=== PATIENT | female | born 1960 | race Caucasian/White ===

== ENCOUNTER 2018-06-08 14:58 | Outpatient (CLI) ==
[2016-05-06 15:15] VITALS: BMI 28.9
--- NOTE | 2018-06-08 15:39 | DI ---
EXAM: Right knee four view . HISTORY: Right knee effusion COMPARISON: None available at the time of dictation. FINDINGS: No definitive right knee acute fracture or dislocation is identified. Joint spaces appear preserved. No definitive soft tissue radiodense foreign bodies are identified. There is a small right knee supr apatellar density which may represent a small right knee suprapatellar effusion. IMPRESSION: No right knee acute fracture or dislocation identified. There is a small right knee suprapatellar density which may represent a small right knee suprapatella r effusion.
--- NOTE | 2018-06-08 15:51 | DI ---
EXAM: Right hand three-view HISTORY: Pain in right hand COMPARISON: None FINDINGS: No fracture or dislocation. Mild scattered osteoarthritic change throughout the hand. Re modeling change in the third and possibly fourth metacarpal may be due to old healed fractures. No e rosive changes identified. No focal soft tissue abnormality. IMPERSSION: Mild osteoarthritis.
== END 2018-06-08 14:59 | disposition home or self-care (01) ==
LOC: RAD 14:58
PROVIDERS: ATTEND Emergency Medicine
DX: E78.5 Hyperlipidemia, unspecified (principal); K70.30 Alcoholic cirrhosis of liver without ascites; F10.20 Alcohol dependence, uncomplicated; M79.641 Pain in right hand; M25.461 Effusion, right knee; E66.9 Obesity, unspecified
CPT/HCPCS: 36415; 80053; 80061; 82140; 84443; 85025; 85610

== ENCOUNTER 2019-02-07 10:23 | Outpatient (CLI) | payer MEDICAID, OTHER ==
[2016-05-06 15:15] VITALS: BMI 28.9
--- NOTE | 2019-02-07 11:31 | US ---
EXAM: Right upper quadrant abdominal ultrasound. History: Cirrhosis, thrombocytopenia. Comparison: CT abdomen pelvis 05/06/2016 Technique: Multiple sonographic images through the abdomen were obtained. Color duplex Doppler was used to interrogate vascular flow. Findings: Nodular cirrhotic liver. No focal liver lesions identified sonographically. There is antegrade flow within the main portal vein. The visualized pancreas demonstrates no gross abnormality. Limited vi sualization of the right kidney demonstrates no evidence for hydronephrosis. Gallbladder is distende d. No shadowing gallstones. Gallbladder wall is not thickened. Common bile duct measures 0.3 cm in caliber. Impression: 1. Cirrhotic liver. 2. Distended gallbladder but no shadowing gallstones.
== END 2019-02-07 10:24 | disposition home or self-care (01) ==
LOC: RAD 10:23
PROVIDERS: ATTEND Nurse Practitioner Family
DX: D64.9 Anemia, unspecified (principal); R74.8 Abnormal levels of other serum enzymes; R53.83 Other fatigue; Z87.898 Personal history of other specified conditions; K74.60 Unspecified cirrhosis of liver; D69.6 Thrombocytopenia, unspecified
CPT/HCPCS: 36415; 80053; 80061; 80074; 82607; 83036; 84436; 84443; 84479; 85025

== ENCOUNTER 2019-03-11 15:07 | Outpatient (CLI) ==
[2016-05-06 15:15] VITALS: BMI 28.9
--- NOTE | 2019-03-14 09:02 | MAMMO ---
EXAM: Digital screening mammogram with tomosynthesis HISTORY: Screening COMPARISON: 05/27/2016 FINDINGS: Digital MLO and CC views of the right and left breast were performed. Tomosynthesis was performed. Computer aided detection utilized. There are scattered fibroglandular densities. There is no evidence for mass, asymmetry, distortion, or suspicious calcifications in either breast. IMPRESSION: 1. No evidence of malignancy in the right or left breast. 2. Annual screening mammogram is recommended in one year. BIRADS category 1, negative examination
== END 2019-03-11 15:08 | disposition home or self-care (01) ==
LOC: RAD 15:07
PROVIDERS: ATTEND Nurse Practitioner Family
DX: Z12.31 Encounter for screening mammogram for malignant neoplasm of breast (principal)

== ENCOUNTER 2019-04-18 13:38 | Emergency (ER) ==
[2019-04-18 13:46] VITALS: BMI 32.9
[2019-04-18] MEDS ORDERED: SODIUM CHLORIDE 1,000 ML IV STA ×2 (14:23→15:49)
[2019-04-18] MEDS ORDERED: ROCEPHIN 2 GM in SODIUM CHLORIDE 100 ML IV STA (14:23)
[2019-04-18] MEDS ORDERED: ROCEPHIN ONE (14:36)
[2019-04-18] MEDS ORDERED: SODIUM CHLORIDE 3% 500 ML IV SCH (15:30)
[2019-04-18] MEDS ORDERED: POTASSIUM CHLORIDE PREMIX RUN 10 MEQ in PREMIX 100 ML WATER 1 BAG IV STA (15:48)
[2019-04-18] MEDS ORDERED: VANCOMYCIN 1 GM in SODIUM CHLORIDE 250 ML IV STA (15:51)
[2019-04-18] MEDS ORDERED: POTASSIUM CHLORIDE PREMIX RUN 100 ML IV ONE (16:03)
--- NOTE | 2019-04-18 16:34 | CT ---
EXAM: CT of the head without contrast History: Head trauma. Comparison: Head CT 09/21/2015 Technique: Multiplanar CT images through the head were obtained without the administration of IV con trast Findings: Mucosal thickening and fluid seen within the bilateral maxillary sinuses and ethmoid sinus es. Mastoid air cells are clear in general. No acute calvarial abnormalities. Intracranially the ventricular and cisternal spaces are normal in size, shape and configuration for a patient of this age. No dominant mass or midline shift. No hydrocephalous. No acute intracranial hemorrhage or abnormal extraaxial fluid collections. Impression: 1. No acute intracranial process. 2. Paranasal sinus disease
--- NOTE | 2019-04-18 16:37 | CT ---
EXAM: CT chest without contrast HISTORY: Cough, fever, weakness COMPARISON: None TECHNIQUE: CT chest performed without intravenous contrast. Coronal and sagittal reformatted images obtained. FINDINGS: The thyroid and thoracic inlet appear normal. Heart normal in size. Coronary calcificati ons. No pericardial effusion. Aorta normal in caliber. Mild to moderate atherosclerosis. Esophagu s unremarkable. Evaluation for lymphadenopathy limited without contrast. No lymphadenopathy identif ied. Calcified lymph nodes, consistent with old granulomatous disease. No acute abnormalities of th e bones. Mild degenerative change in the spine. Central airway patent. Mild dependent atelectasis. No airspace consolidation. No pleural effusion. No pneumothorax. 3 mm nodule left lung image 32 i s unchanged from 05/06/2016, most consistent with benign etiology. Please refer to separate report C T abdomen pelvis regarding findings in the upper abdomen. IMPRESSION: 1. Mild bibasilar atelectasis. No airspace consolidation. 2. Coronary calcifications. Atherosclerosis. 3. Findings of old granulomatous disease.
--- NOTE | 2019-04-18 16:38 | DI ---
EXAM: Left elbow three-view HISTORY: Fall COMPARISON: All none FINDINGS: The patient has an IV line. The bones are normal. The alignment is normal. No joint effus ion. No focal soft tissue abnormality. IMPRESSION: Normal examination.
--- NOTE | 2019-04-18 16:38 | CT ---
EXAM: CT of the abdomen pelvis without contrast History: Abdominal pain and lethargic Comparison: Chest CT 04/18/2019, CT abdomen pelvis 05/06 2016 Technique: Multiplanar CT images through the abdomen pelvis were obtained without the administration of IV contrast Findings: Subsegmental atelectasis seen within the lower lungs. No acute osseous abnormalities. Nodular cirrhotic liver with increased size of collateral vessels and recanalization of the periumbil ical vein. No discrete gallstones identified by CT. Evaluation for liver lesions is limited due to the lack of contrast administration. Spleen is not enlarged. No renal stones and no hydronephrosis. Mild peripancreatic edema. Adrenal glands are unremarkable. No bowel obstruction. No bladder wal l thickening. No free air. No ascites. No perirectal inflammation. Possible endometrial thickenin g. No abdominal aortic aneurysm. Mildly enlarged upper lung nodes are probably reactive. Impression: 1. Possible mild pancreatitis. Correlate with pancreatic enzymes. 2. Worsening cirrhosis and increased size of the abdominal collateral vessels consistent with portal venous hypertension. 3. Possible endometrial thickening. Recommend further evaluation with nonemergent pelvic ultrasound .
--- NOTE | 2019-04-18 16:40 | DI ---
EXAM: Left humerus two-view HISTORY: Fall COMPARISON: None FINDINGS: The bones are normal. Alignment is normal. No focal soft tissue abnormality. Patient has a n IV line IMPERSSION: Normal examination.
--- NOTE | 2019-04-18 17:01 | ED.PDOC ---
General ED Provider: Dr. ROC RICO Chief Complaint: Weakness Stated Complaint: weakness frequent falls. 59 years white female c/o progressive weakness over the last 2 weeks with multiple episodes of diarrhea and later loose stools. Time Seen by Physician: 13:39 Mode of Arrival: Wheelchair Information Source: Patient Exam Limitations: No limitations Primary Care Provider: MICHAEL GARCIA Nursing and Triage Documentation Reviewed and Agree: Yes Does patient meet sepsis criteria?: Yes If yes, has appropriate treatment been initiated?: Yes System Inflammatory Response Syndrome: Temp 101F or Greater Sepsis Protocol: For patient's 13 years and over: Temp is 96.8 and below OR 101 and greater Pulse >90 BPM Resp >20/minute Acutely Altered Mental Status Are patient's symptoms suggestive of a new infection, such as: -Pneumonia -Skin, Soft Tissue -Endocarditis -UTI -Bone, Joint Infection -Implantable Device -Acute Abdominal Infection -Wound Infection -Meningitis -Blood Stream Catheter Infection -Unknown Miscellaneous Complaint Exam - Complex/Multi-System Complaint/Exam Onset/Duration: 1 week Symptoms Are: Resolved Episodes Lasting: Days Initial Severity: Moderate Current Severity: Moderate Associated Signs and Symptoms: Reports: Weakness, Cough, Nausea, Abdominal pain , Decreased oral intake Recent Echo/LV Function: No Respiratory Distress: None JVD Present: No Tachypnea Present: No Stridor Present: No Abdominal Findings: Present: Normal findings Glascow Coma Scale (see protocol): 15 Meningeal Signs Positive: No Focal Weakness: Present: None Focal Sensory Loss: Present: None Gait: Unable Babinski Sign: Negative Right, Negative Left Joint Swelling Present: No In-Dwelling Device Present: No Differential Diagnosis: Cardiac Ischemia, Metabolic Abnormality, Sepsis, UTI Quality Indicators for Cardiac Chest Pain: EKG in 10min. Quality Indicators for AMI: EKG in 10min. Quality Indicators For Pneumonia/CAP: Antibiotics in 6hr-admit, Empiric Antibiotic Rx, Vital signs, Mental status assessed (aox3 ) Quality Indicator For Non-Traumatic Chest Pain/Syncope: EKG Performed Review of Systems - Review Of Systems Constitutional: Reports: Malaise, Weakness, Loss of appetite Eyes: Reports: No symptoms Ears, Nose, Mouth, Throat: Reports: No symptoms Respiratory: Reports: Cough Cardiac: Reports: No symptoms GI: Reports: No symptoms : Reports: No symptoms Musculoskeletal: Reports: No symptoms Skin: Reports: No symptoms Neurological: Reports: No symptoms Endocrine: Reports: No symptoms Hematologic/Lymphatic: Reports: No symptoms All Other Systems: Reviewed and Negative Past Medical History - Past Medical History Endocrine: Reports: Dyslipidemia (old record) Cardiovascular: Reports: None Respiratory: Reports: None Hematological: Reports: Anemia (old record) Gastrointestinal: Reports: Liver (old record) Genitourinary: Reports: None Neuro/Psych: Reports: Other (knee buckling) Musculoskeletal: Reports: None Cancer: Reports: None Last Menstrual Period: na - Surgical History General Surgical History: Reports: Tubal ligation, Other (plastic surgery right face right hand, colonoscopy) - Family History Family History: Reports: Unknown - Social History Smoking Status: Current some day smoker Hx Substance Use: No Alcohol Screening: Occasionally - Immunizations Tetanus Shot up to Date: Yes Physical Exam - Physical Exam Appearance: Ill-appearing Ill-appearing: Severe Pain Distress: Mild Eyes: ADRIENNE, EOMI, Conjunctiva clear ENT: Erythema, Dry mucosa Respiratory: Airway patent Cardiovascular: RRR, Pulses normal, No rub, No murmur GI/: Soft, Nontender, No masses, Bowel sounds normal, No Organomegaly Musculoskeletal: Normal strength, ROM intact, No edema, No calf tenderness Skin: Warm, Dry, Normal color Neurological: Sensation intact, Motor intact, Reflexes intact, Cranial nerves intact, Alert, Oriented Psychiatric: Affect appropriate, Mood appropriate Interpretation - Radiology Interpretation Radiology Interpretation By: Radiologist Radiology Results: Positive (cirrhosis) - Publications Editor Rate: Normal Rhythm: Sinus - EKG Interpretation Rate: Normal Rhythm: Sinus Physician Notification - Case Discussed Physician Notified: alba ESPINO Time of Notification: 17:20 (TRANSFER ) Critical Care Note - Critical Care Note Total Time (mins): 120 Course - Course Hematology/Chemistry: 04/18/19 14:30 04/18/19 14:30 Orders, Labs, Meds: Lab Review 04/18/19 04/18/19 04/18/19 14:30 14:30 14:30 WBC 4.25 L RBC 4.06 L Hgb 12.5 Hct 35.6 L MCV 87.7 MCH 30.8 MCHC 35.1 RDW Coeff of Rhiannon 22.7 H Plt Count 30 L Immature Gran % (Auto) 0.7 Neut % (Auto) 61.4 Lymph % (Auto) 12.9 [place] % (Auto) 24.5 H Eos % (Auto) 0.0 Baso % (Auto) 0.5 Immature Gran # (Auto) 0.0 Neut # (Auto) 2.6 Lymph # (Auto) 0.6 [place] # (Auto) 1.0 Eos # (Auto) 0.0 Baso # (Auto) 0.0 Anisocytosis 1+ PT 16.1 H INR 1.63 APTT 35.2 Puncture Site O2 Saturation ABG pH ABG pCO2 ABG pO2 ABG HCO3 ABG Total CO2 ABG Base Excess William Test FiO2 % Sodium 118.2 L* Potassium 2.87 L Chloride 85.4 L Carbon Dioxide 18.1 L Anion Gap 17.57 BUN 4.1 L Creatinine 0.41 L Estimated GFR (MDRD) 159.00 BUN/Creatinine Ratio 10.00 Glucose 115.9 H Lactic Acid Calcium 8.31 L Total Bilirubin 1.69 H AST 333.3 H ALT 57.1 H Alkaline Phosphatase 69.5 Total Creatine Kinase 8332.9 H CK-MB (CK-2) 3.880 H CK-MB (CK-2) % 0.0400 Troponin I 0.271 H Total Protein 7.34 Albumin 3.66 Globulin 3.68 Albumin/Globulin Ratio 0.99 Procalcitonin Urine Color Urine Clarity Urine pH Ur Specific [place] Urine Protein Urine Glucose (UA) Urine Ketones Urine Blood Urine Nitrite Urine Bilirubin Urine Urobilinogen Ur Leukocyte Esterase Urine Microscopic RBC Urine Microscopic WBC Ur Squamous Epith Cells Influ A Molecular Assay Influ B Molecular Assay 04/18/19 04/18/19 04/18/19 14:30 14:30 14:30 WBC RBC Hgb Hct MCV MCH MCHC RDW Coeff of Rhiannon Plt Count Immature Gran % (Auto) Neut % (Auto) Lymph % (Auto) [place] % (Auto) Eos % (Auto) Baso % (Auto) Immature Gran # (Auto) Neut # (Auto) Lymph # (Auto) [place] # (Auto) Eos # (Auto) Baso # (Auto) Anisocytosis PT INR APTT Puncture Site O2 Saturation ABG pH ABG pCO2 ABG pO2 ABG HCO3 ABG Total CO2 ABG Base Excess William Test FiO2 % Sodium Potassium Chloride Carbon Dioxide Anion Gap BUN Creatinine Estimated GFR (MDRD) BUN/Creatinine Ratio Glucose Lactic Acid 2.85 H Calcium Total Bilirubin AST ALT Alkaline Phosphatase Total Creatine Kinase CK-MB (CK-2) CK-MB (CK-2) % Troponin I Total Protein Albumin Globulin Albumin/Globulin Ratio Procalcitonin 0.76 Urine Color Yellow Urine Clarity Clear Urine pH 6.5 Ur Specific [place] 1.020 Urine Protein 2+ Urine Glucose (UA) Negative Urine Ketones 2+ Urine Blood 3+ Urine Nitrite Negative Urine Bilirubin 1+ Urine Urobilinogen 2.0 Ur Leukocyte Esterase Negative Urine Microscopic RBC 20-30 Urine Microscopic WBC 0-2 Ur Squamous Epith Cells 2-5 Influ A Molecular Assay Influ B Molecular Assay 04/18/19 04/18/19 14:30 14:45 WBC RBC Hgb Hct MCV MCH MCHC RDW Coeff of Rhiannon Plt Count Immature Gran % (Auto) Neut % (Auto) Lymph % (Auto) [place] % (Auto) Eos % (Auto) Baso % (Auto) Immature Gran # (Auto) Neut # (Auto) Lymph # (Auto) [place] # (Auto) Eos # (Auto) Baso # (Auto) Anisocytosis PT INR APTT Puncture Site R rad O2 Saturation 96.0 ABG pH 7.520 H* ABG pCO2 20.5 L ABG pO2 73.0 L ABG HCO3 16.8 L ABG Total CO2 17 L ABG Base Excess -6 L William Test + FiO2 % 21.0 Sodium Potassium Chloride Carbon Dioxide Anion Gap BUN Creatinine Estimated GFR (MDRD) BUN/Creatinine Ratio Glucose Lactic Acid Calcium Total Bilirubin AST ALT Alkaline Phosphatase Total Creatine Kinase CK-MB (CK-2) CK-MB (CK-2) % Troponin I Total Protein Albumin Globulin Albumin/Globulin Ratio Procalcitonin Urine Color Urine Clarity Urine pH Ur Specific [place] Urine Protein Urine Glucose (UA) Urine Ketones Urine Blood Urine Nitrite Urine Bilirubin Urine Urobilinogen Ur Leukocyte Esterase Urine Microscopic RBC Urine Microscopic WBC Ur Squamous Epith Cells Influ A Molecular Assay Negative by naat Influ B Molecular Assay Negative by naat Orders Category Date Time Status ABG DRAW REQUEST Stat CARDIO 04/18/19 14:22 Completed EKG-(ED ONLY) Stat CARDIO 04/18/19 14:20 Completed ED IV/MEDIPORT/POWERPORT .ONCE EMERGENCY 04/18/19 14:20 Active ABG Stat LAB 04/18/19 14:45 Completed BLOOD CULTURE (ED ONLY) Stat LAB 04/18/19 14:30 Received BMP [BASIC METABOLIC PANEL] Stat LAB 04/18/19 16:49 Ordered CBC W/ AUTO DIFF Stat LAB 04/18/19 14:30 Completed COMPREHENSIVE METABOLIC PANEL Stat LAB 04/18/19 14:30 Completed CREATINE KINASE Stat LAB 04/18/19 14:30 Completed ETOH LEVEL [BLOOD ALCOHOL] Stat LAB 04/18/19 16:57 Ordered FLU A/B MOLECULAR Stat LAB 04/18/19 14:30 Completed LACTIC ACID Stat LAB 04/18/19 14:30 Completed MOLECULAR GROUP A STREP Stat LAB 04/18/19 14:30 Completed PARTIAL THROMBOPLASTIN TIME Stat LAB 04/18/19 14:30 Completed PROCALCITONIN Stat LAB 04/18/19 14:30 Completed PT WITH INR Stat LAB 04/18/19 14:30 Completed RBC MORPHOLOGY Stat LAB 04/18/19 14:30 Completed TROPONIN I Stat LAB 04/18/19 14:30 Completed URINALYSIS C & S IF INDICATED Stat LAB 04/18/19 14:30 Completed 0.9 % Sodium Chloride [Saline Flush] MEDS 04/18/19 14:20 Active 1 syr IVF PRN PRN Ceftriaxone Sodium [Rocephin] MEDS 04/18/19 14:36 Discontinued 2 gm .ROUTE .STK-MED ONE Ceftriaxone Sodium [Rocephin] 2 gm MEDS 04/18/19 14:23 Discontinued 0.9 % Sodium Chloride [Sodium Chloride] 100 ml IV ONCE Potassium Chloride [Potassium Chloride Premix Run] 10 MEDS 04/18/19 15:48 Discontinued meq Premix 100 ml Water 1 bag IV ONCE Potassium Chloride [Potassium Chloride Premix Run] 100 MEDS 04/18/19 16:03 Discontinued ml IV .STK-MED Sodium Chloride 0.9% [Sodium Chloride] 1,000 ml MEDS 04/18/19 15:49 Active IV 125 mls/hr Sodium Chloride 0.9% [Sodium Chloride] 1,000 ml MEDS 04/18/19 14:23 Discontinued IV BOLUS Sodium Chloride 3% 500 ml MEDS 04/18/19 15:30 Active IV 100 mls/hr Vancomycin HCl [Vancomycin] 1 gm MEDS 04/18/19 15:51 Active 0.9 % Sodium Chloride [Sodium Chloride] [address] ABDOMEN/PELVIS WO CONTRAST Stat RADS 04/18/19 14:[address] CHEST W/O CONTRAST Stat RADS 04/18/19 14:[address] HEAD W/O CONTRAST Stat RADS 04/18/19 15:51 Completed ELBOW, LEFT MIN 3 VIEWS Stat RADS 04/18/19 14:24 Completed HUMERUS, LEFT 2VIEWS Stat RADS 04/18/19 14:24 Completed Medications Generic Name Dose Route Start Last Admin Trade Name Freq PRN Reason Stop Dose Admin Sodium Chloride 500 mls @ 100 mls/hr 04/18/19 15:30 04/18/19 15:35 Sodium Chloride 3% IV 100 mls/hr .Q5H QUANG Administration Sodium Chloride 1,000 mls @ 125 mls/hr 04/18/19 15:49 Sodium Chloride IV 04/18/19 23:48 .Q8H STA Sodium Chloride 1 syr 04/18/19 14:20 04/18/19 14:46 Saline Flush IVF 1 syr PRN PRN Administration To flush IV Discontinued Medications Generic Name Dose Route Start Last Admin Trade Name Freq PRN Reason Stop Dose Admin Sodium Chloride 1,000 mls @ 1,000 mls/hr 04/18/19 14:23 04/18/19 14:46 Sodium Chloride IV 04/18/19 15:22 1,000 mls/hr BOLUS STA Administration Ceftriaxone Sodium 2 gm/ 100 mls @ 100 mls/hr 04/18/19 14:23 04/18/19 14:46 Sodium Chloride IV 04/18/19 15:22 100 mls/hr ONCE STA Administration Potassium Chloride 10 meq/ 100 mls @ 100 mls/hr 04/18/19 15:48 04/18/19 16:30 Sterile Water IV 04/18/19 16:47 100 mls/hr ONCE STA Administration Vancomycin HCl 1 gm/ Sodium 250 mls @ 250 mls/hr 04/18/19 15:51 04/18/19 16: 32 Chloride IV 04/18/19 16:50 250 mls/hr ONCE STA Administration Vital Signs: Temp Pulse Resp BP Pulse Ox 04/18/19 15:04 102.7 F H 04/18/19 13:38 103.8 F H 106 H 18 123/77 92 L Departure - Departure Time of Disposition: 17:20 (NEURONONEFOCAL AT 17:20) Disposition: TSF SHORT-TRM HOSP Discharge Problem: Pancytopenia, Hypokalemia, Hyponatremia Instructions: Hyponatremia (ED) Condition: Good Pt referred to PMD for follow-up: Yes IPMP verified?: No Additional Instructions: Please call your Family Physician as soon as possible to schedule a follow-up appointment. Allergies/Adverse Reactions: Allergies Penicillins Allergy (Intermediate, Verified 04/18/19 14:03) Itching Home Medications: Ambulatory Orders 1 [No Reported Medications] 09/21/15
[2019-04-18 17:34] VITALS: BP 136/68; TEMP 101.5
== END 2019-04-18 18:00 | disposition short-term general hospital (02) ==
LOC: ED 13:38
DX: R53.1 Weakness (principal); R05 Cough; R11.0 Nausea; R10.9 Unspecified abdominal pain; R63.0 Anorexia; R53.81 Other malaise; Z72.0 Tobacco use; D61.818 Other pancytopenia; E87.6 Hypokalemia; E87.1 Hypo-osmolality and hyponatremia
CPT/HCPCS: 36415; 80048; 80053; 80307; 81001; 82550; 82553; 82803; 83605; 84145; 84484; 85008; 85025; 85610; 85730; 87040; 87502; 87651; 93005; 93010; 96365; 96367; 96368; 99285

== ENCOUNTER 2019-04-18 18:07 | Outpatient (CLI) ==
[2019-04-18 13:46] VITALS: BMI 32.9
== END 2019-04-18 18:28 | disposition short-term general hospital (02) ==
LOC: AMBL 18:07
PROVIDERS: ATTEND Internal Medicine
DX: E87.1 Hypo-osmolality and hyponatremia (principal); E87.6 Hypokalemia; D61.818 Other pancytopenia; K74.60 Unspecified cirrhosis of liver; K85.90 Acute pancreatitis without necrosis or infection, unspecified

== ENCOUNTER 2019-04-29 16:02 | Outpatient (CLI) | END 2019-04-29 16:03 | disposition home or self-care (01) | LOC: RHC-LAB 16:02 → FCC-LAB 16:03 | PROVIDERS: ATTEND Nurse Practitioner Family | DX: R74.8 Abnormal levels of other serum enzymes (principal); K74.60 Unspecified cirrhosis of liver | CPT/HCPCS: 36415; 80053; 82140; 83735; 85008; 85025 ==